=== PATIENT | male | born 1995 | race Caucasian/White ===

== ENCOUNTER 2024-01-26 00:07 | Emergency (ER) | payer BC, OTHER ==
[~2024-01-26] VITALS: Ht 188 cm; Wt 68.0 kg
[2024-01-26 01:23] VITALS: BP 134/81; TEMP 98.7; O2SAT 99
[2024-01-26] MEDS ORDERED: AZIT250T13 PO (01:26)
[2024-01-26] MEDS ORDERED: IBUPROFEN 400 MG TABLET ONE (01:51)
[2024-01-26] MEDS: IBUPROFEN 400 MG TABLET PO ONE (01:51)
[2024-01-26] MEDS ORDERED: AZITHROMYCIN 250 MG TABLET ONE (01:51)
[2024-01-26] MEDS: AZITHROMYCIN 250 MG TABLET PO ONE (01:52)
== END 2024-01-26 01:55 | disposition home or self-care (01) ==
LOC: ER 00:21
DX: J01.90 Acute sinusitis, unspecified (principal); J45.909 Unspecified asthma, uncomplicated; J34.89 Other specified disorders of nose and nasal sinuses